=== PATIENT | female | born 1990 | race Caucasian/White ===

== ENCOUNTER 2025-04-10 08:41 | Inpatient (IN) | payer BC ==
[2025-04-17] MEDS ORDERED: Acetaminophen 500 MG TAB PO PRN (05:59)
[2025-04-17] MEDS ORDERED: Methylergonovine 0.2 MG/ML VIAL IM PRN (05:59)
[2025-04-17] MEDS ORDERED: hydrALAZINE 20 MG/ML VIAL SLOW IVP PRN (05:59)
[2025-04-17] MEDS ORDERED: Tranexamic Acid 1,000 MG/10 ML VIAL IVP PRN (05:59)
[2025-04-17] MEDS ORDERED: Carboprost 250 MCG/ML AMP IM PRN (05:59)
[2025-04-17] MEDS ORDERED: Lidocaine 1% (PF) 30 ML VIAL SC PRN (05:59)
[2025-04-17] MEDS ORDERED: Oxytocin 30 units/NS 500 ML 500 ML IV SCH (06:00)
[2025-04-17 06:13] VITALS: BMI 30.9
[2025-04-17 06:43] LABS: Hematocrit 31.9 % (34.9-44.5); Hemoglobin 11.0 g/dL (12.0-15.5); Mean Corpuscular Hemoglobin 31.1 pg (27.0-33.0); Mean Corpuscular Volume 90.1 fL (81.6-98.3); Platelet Count 233 10x3/uL (150-450); Red Blood Cell (RBC) Count 3.54 10x6/uL (3.90-5.03); White Blood Cell (WBC) Count 10.12 10x3/uL (3.5-10.5)
[2025-04-17 07:16] LABS: Syphilis Antibody Index 0.08 S/CO (<1.00 Non-Reactive)
[2025-04-17 07:17] LABS: Hep B Surf Ag - L&D Non-Reactive S/CO (NonReactive)
[2025-04-17] MEDS: Famotidine 20 MG TAB PO SCH (20:40)
[2025-04-17] MEDS: Oxytocin 30 units/NS 500 ML 500 ML IV SCH (20:58)
[2025-04-18] MEDS: fentaNYL/Ropivacaine Epidural 100 ML ONE (04:29)
[2025-04-18] MEDS ORDERED: Ondansetron PF 4 MG/2 ML Vial IVP PRN (04:47)
[2025-04-18] MEDS ORDERED: Acetaminophen 325 MG TAB PO PRN (04:47)
[2025-04-18] MEDS ORDERED: diphenhydrAMINE 50 MG/ML VIAL IVP PRN (04:47)
[2025-04-18] MEDS ORDERED: Communication Order-Pharmacy FS SCH (05:00)
[2025-04-18] MEDS: Calcium Carbonate 500 MG ChewTAB PO PRN (05:29)
[2025-04-18] MEDS: Ondansetron PF 4 MG/2 ML Vial IVP PRN (10:02)
[2025-04-18] MEDS: fentaNYL 2 mcg/Ropivacaine 0.2% Epidural 100 ML CADD EPIDURAL SCH (16:28)
[2025-04-18] MEDS ORDERED: Famotidine/PF 20 mg/2ml Vial SLOW IVP PRN (21:57)
[2025-04-18] MEDS ORDERED: Bicitra 30 ML UDCUP PO PRN (21:57)
[2025-04-18] MEDS ORDERED: Azithromycin 500 MG in Sodium Chloride 0.9% 250 ML 250 ML IVPB SCH (22:45)
[2025-04-18 23:29] LABS: Analyzer IN Cardio CS NICU; Critical Notified By: CP.LH1; RapidComm Collect By CBN
[2025-04-18 23:31] LABS: Analyzer IN Cardio CS NICU; Critical Notified By: CP.LH1; RapidComm Collect By CBN; pH (Cord, venous) 7.195 (7.250-7.350)
[2025-04-19] MEDS ORDERED: Meperidine HCl/PF 25 MG (1 mL) VIAL SLOW IVP PRN (00:04)
[2025-04-19] MEDS ORDERED: HYDROmorphone 0.5 MG/0.5 ML SYRINGE SLOW IVP PRN (00:04)
[2025-04-19] MEDS ORDERED: diphenhydrAMINE 50 MG/ML VIAL IVP PRN (00:04)
[2025-04-19] MEDS ORDERED: Ondansetron PF 4 MG/2 ML Vial IVP PRN ×2 (00:04)
[2025-04-19] MEDS ORDERED: Communication Order-Pharmacy FS SCH (00:15)
[2025-04-19] MEDS: Diphenoxylate HCl/Atropine Tablet PO PRN (01:23)
[2025-04-19] MEDS ORDERED: Methylergonovine 0.2 MG/ML VIAL IM PRN (03:07)
[2025-04-19] MEDS ORDERED: diphenhydrAMINE 25 MG CAP PO PRN (03:07)
[2025-04-19] MEDS ORDERED: Lanolin Ointment 7 GM TUBE TOP PRN (03:07)
[2025-04-19] MEDS ORDERED: Simethicone Chewable 80 MG TAB PO PRN (03:07)
[2025-04-19] MEDS ORDERED: Oxytocin 30 units/NS 500 ML 500 ML IV SCH (03:07)
[2025-04-19] MEDS ORDERED: hydrALAZINE 20 MG/ML VIAL SLOW IVP PRN (03:07)
[2025-04-19] MEDS ORDERED: Ketorolac Tromethamine 30 MG (1 mL) VIAL IVP PRN (05:00)
[2025-04-19 05:35] LABS: Hematocrit 27.4 % (34.9-44.5); Hemoglobin 9.3 g/dL (12.0-15.5); Mean Corpuscular Hemoglobin 31.0 pg (27.0-33.0); Mean Corpuscular Volume 91.3 fL (81.6-98.3); Platelet Count 202 10x3/uL (150-450); Red Blood Cell (RBC) Count 3.00 10x6/uL (3.90-5.03); White Blood Cell (WBC) Count 23.74 10x3/uL (3.5-10.5)
[2025-04-19 06:11] LABS: ALT (SGPT) 10 U/L (Less than 34); AST (SGOT) 30 U/L (11-34); Albumin 2.3 g/dL (3.1-4.5); Alkaline Phosphatase 132 U/L (40-110); Anion Gap 14 mmol/L (10-20); BUN (Urea Nitrogen) 10 mg/dL (7.0-18.7); Bilirubin, Total 0.5 mg/dL (0.3-1.2); Calc. Creatinine Clearance 122 mL/min (70-130); Calcium 8.4 mg/dL (7.8-10.44); Carbon Dioxide 19 mmol/L (22-29); Chloride 107 mmol/L (98-107); Globulin 3.2 g/dL (2.4-3.5); Glucose 102 mg/dL (70-105); Potassium 4.2 mmol/L (3.5-5.1); Sodium 136 mmol/L (136-145)
[2025-04-19] MEDS: Azithromycin 500 MG VIAL ONE (06:49)
[2025-04-19] MEDS: Ketorolac Tromethamine 30 MG (1 mL) VIAL ONE (06:49)
[2025-04-19] MEDS: Ondansetron PF 4 MG/2 ML Vial ONE (06:49)
[2025-04-19] MEDS: CEFAZOLIN 1 GM VIAL ONE (06:49)
[2025-04-19] MEDS: Dexamethasone 10 MG/ML VIAL ONE (06:49)
[2025-04-19] MEDS: Lidocaine 2% MPF 10 ML AMP (For Epidural Use) ONE ×2 (06:49)
[2025-04-19] MEDS: Tranexamic Acid 1,000 MG/10 ML VIAL ONE (06:50)
[2025-04-19] MEDS: Oxytocin 10 UNITS/ML VIAL ONE (06:50)
[2025-04-19] MEDS: KETAMINE 100 MG/ML (5ML VIAL) ONE (06:50)
[2025-04-19] MEDS: Boostrix 0.5 ML (Tdap) VIAL (>/=7 yrs of age) IM ONE (07:51)
[2025-04-19] MEDS: Ferrous Sulfate 325 MG TAB PO SCH (07:58)
[2025-04-19] MEDS ORDERED: Iopamidol 300 61% 100 ML VIAL FS ONE (10:42)
[2025-04-19] MEDS: HYDROcodone/Acetaminophen 5/325 mg Tablet PO PRN (11:02)
[2025-04-19] MEDS: Ibuprofen 800 MG TAB PO SCH (14:25)
[2025-04-19] MEDS: Simethicone Chewable 80 MG TAB PO SCH (21:04)
[2025-04-20] MEDS: Simethicone Chewable 80 MG TAB PO PRN (02:11)
[2025-04-20 04:41] LABS: #Basophils 0.04 10x3/uL (0.0-0.2); #Eosinophils 0.07 10x3/uL (0.0-0.5); #Monocytes 0.58 10x3/uL (0.0-1.1); #Neutrophils 15.47 10x3/uL (1.5-8.4); %Basophils 0.2 % (0.0-2.0); %Eosinophils 0.4 % (0.0-6.0); %Lymphocytes 10.5 % (18.0-47.0); %Monocytes 3.2 % (0.0-10.0); %Neutrophils 84.5 % (40.0-75.0); Hematocrit 23.7 % (34.9-44.5); Hemoglobin 7.9 g/dL (12.0-15.5); Mean Corpuscular Hemoglobin 31.1 pg (27.0-33.0); Mean Corpuscular Volume 93.3 fL (81.6-98.3); Platelet Count 209 10x3/uL (150-450); Red Blood Cell (RBC) Count 2.54 10x6/uL (3.90-5.03); White Blood Cell (WBC) Count 18.30 10x3/uL (3.5-10.5)
[2025-04-20] MEDS ORDERED: Ibuprofen 800 MG TAB PO SCH (10:00)
[2025-04-20] MEDS: Bisacodyl 10 MG SUPP PR PRN (14:40)
[2025-04-20 16:17] LABS: Hematocrit 21.9 % (34.9-44.5); Hemoglobin 7.4 g/dL (12.0-15.5); Mean Corpuscular Hemoglobin 31.9 pg (27.0-33.0); Mean Corpuscular Volume 94.4 fL (81.6-98.3); Platelet Count 244 10x3/uL (150-450); Red Blood Cell (RBC) Count 2.32 10x6/uL (3.90-5.03); White Blood Cell (WBC) Count 15.62 10x3/uL (3.5-10.5)
[2025-04-21 03:47] LABS: #Basophils Less than 0.03 10x3/uL (0.0-0.2); #Eosinophils 0.18 10x3/uL (0.0-0.5); #Monocytes 0.42 10x3/uL (0.0-1.1); #Neutrophils 8.89 10x3/uL (1.5-8.4); %Basophils 0.2 % (0.0-2.0); %Eosinophils 1.5 % (0.0-6.0); %Lymphocytes 17.3 % (18.0-47.0); %Monocytes 3.6 % (0.0-10.0); %Neutrophils 75.8 % (40.0-75.0); Anion Gap 14 mmol/L (10-20); BUN (Urea Nitrogen) 10 mg/dL (7.0-18.7); Calc. Creatinine Clearance 183 mL/min (70-130); Calcium 8.2 mg/dL (7.8-10.44); Carbon Dioxide 22 mmol/L (22-29); Chloride 108 mmol/L (98-107); Glucose 106 mg/dL (70-105); Hematocrit 20.7 % (34.9-44.5); Hemoglobin 6.8 g/dL (12.0-15.5); Mean Corpuscular Hemoglobin 30.4 pg (27.0-33.0); Mean Corpuscular Volume 92.4 fL (81.6-98.3); Platelet Count 220 10x3/uL (150-450); Potassium 3.7 mmol/L (3.5-5.1); Red Blood Cell (RBC) Count 2.24 10x6/uL (3.90-5.03); Sodium 140 mmol/L (136-145); White Blood Cell (WBC) Count 11.73 10x3/uL (3.5-10.5)
[2025-04-21 09:07] LABS: Platelet Count 220.0 10x3/uL (150-450)
[2025-04-21 09:23] LABS: D-Dimer Test 3.45 mcg/mL (0.19-0.50); Fibrinogen 631.0 mg/dL (220-504); INR-International Normal Ratio 0.8; PTT 25.9 sec (22.0-33.0); Prothrombin Time 9.2 sec (9.5-12.1)
[2025-04-21 16:22] LABS: Hematocrit 22.5 % (34.9-44.5); Hemoglobin 7.6 g/dL (12.0-15.5)
[2025-04-22 04:28] LABS: #Basophils Less than 0.03 10x3/uL (0.0-0.2); #Eosinophils 0.14 10x3/uL (0.0-0.5); #Monocytes 0.40 10x3/uL (0.0-1.1); #Neutrophils 7.15 10x3/uL (1.5-8.4); %Basophils 0.2 % (0.0-2.0); %Eosinophils 1.4 % (0.0-6.0); %Lymphocytes 20.8 % (18.0-47.0); %Monocytes 4.0 % (0.0-10.0); %Neutrophils 71.2 % (40.0-75.0); Hematocrit 21.4 % (34.9-44.5); Hemoglobin 7.1 g/dL (12.0-15.5); Mean Corpuscular Hemoglobin 30.5 pg (27.0-33.0); Mean Corpuscular Volume 91.8 fL (81.6-98.3); Platelet Count 274 10x3/uL (150-450); Red Blood Cell (RBC) Count 2.33 10x6/uL (3.90-5.03); White Blood Cell (WBC) Count 10.04 10x3/uL (3.5-10.5)
[2025-04-22] MEDS: Ondansetron PF 4 MG/2 ML Vial IVP PRN (08:17)
[2025-04-22 08:20] LABS: Hematocrit 23.8 % (34.9-44.5); Hemoglobin 8.0 g/dL (12.0-15.5)
[2025-04-22] MEDS: diphenhydrAMINE 25 MG CAP PO SCH (10:29)
[2025-04-22] MEDS: Acetaminophen 500 MG TAB PO SCH (10:29)
[2025-04-22] MEDS: Sodium Ferric Gluconate 250 MG in Sodium Chloride 0.9% 250 ML 250 ML IVPB SCH (10:59)
[2025-04-22 11:04] VITALS: BP 122/78; TEMP 98
== END 2025-04-22 15:20 | disposition home or self-care (01) | DRG 787 ==
LOC: UNDOADMIN 04-17 05:41 → CSHLD 04-17 05:41 → UNDOADMIN 04-19 00:28 → CSHLD 04-19 00:28 → CSHPP 04-19 02:35 → CSHLD 04-19 02:35
PROVIDERS: ADMIT Family Medicine; ATTEND Family Medicine
PROC: 10D00Z1 Extraction of Products of Conception, Low, Open Approach (ICD-10-PCS; principal; 2025-04-18)
PROC: 10907ZC Drainage of Amniotic Fluid, Therapeutic from Products of Conception, Via Natural or Artificial Opening (ICD-10-PCS; 2025-04-18)
PROC: 10H07YZ Insertion of Other Device into Products of Conception, Via Natural or Artificial Opening (ICD-10-PCS; 2025-04-18)
PROC: 30233N1 Transfusion of Nonautologous Red Blood Cells into Peripheral Vein, Percutaneous Approach (ICD-10-PCS; 2025-04-21)
DX: O48.0 Post-term pregnancy (principal); D62 Acute posthemorrhagic anemia; Z3A.41 41 weeks gestation of pregnancy; K21.9 Gastro-esophageal reflux disease without esophagitis; O99.62 Diseases of the digestive system complicating childbirth; O43.893 Other placental disorders, third trimester; O77.0 Labor and delivery complicated by meconium in amniotic fluid; D64.9 Anemia, unspecified; O32.8XX0 Maternal care for other malpresentation of fetus, not applicable or unspecified; O32.4XX0 Maternal care for high head at term, not applicable or unspecified; O62.2 Other uterine inertia; O90.81 Anemia of the puerperium; Z37.0 Single live birth; Z79.899 Other long term (current) drug therapy; Z79.82 Long term (current) use of aspirin
CPT/HCPCS: 36415; 36430; 51702; 74178; 74410; 80048; 80053; 82805; 85025; 85027; 85049; 85300; 85362; 85384; 85610; 85730; 86780; 86850; 86900; 86901; 87340; J0690; J1100; J1885; J2250; J2274; J2405; J2590; J2916; J3010; J7050; J7120; P9040; Q9967